=== PATIENT | male | born 1995 | race Caucasian/White ===

== ENCOUNTER 2021-07-02 11:42 | Emergency (ER) | payer MEDICAID ==
[~2021-07-02] VITALS: Ht 182.9 cm; Wt 70.8 kg
--- NOTE | 2021-07-02 12:01 | NUR ---
PT IS IN ROOM #1B. DR CYR EVALUATED THE PT.
[2021-07-02 12:16] LABS: HEMATOCRIT 44.4 % (36.7-47.1); MEAN CORPUSCULAR HEMOGLOBIN 32.5 uug (23.8-33.4); MEAN CORPUSCULAR VOLUME 91.3 fL (73.0-96.2); PLATELET COUNT (AUTO) 205 K/uL (152-348)
[2021-07-02 12:27] LABS: ALANINE AMINOTRANSFERASE 17 U/L (16-63); ALKALINE PHOSPHATASE 58 U/L (50-136); ASPARTATE AMINOTRANSFERASE 17 U/L (15-37); BILIRUBIN,DIRECT 0.1 mg/dL (0.0-0.2); BILIRUBIN,TOTAL 0.5 mg/dL (0.2-1.0); CARBON DIOXIDE 28 mmol/L (21-32); CHLORIDE 102 mmol/L (98-107); CREATININE 1.1 mg/dL (0.6-1.3); GLUCOSE 93 mg/dL (74-106); POTASSIUM 3.8 mmol/L (3.5-5.1); TOTAL PROTEIN, SERUM 7.6 g/dL (6.4-8.2); UREA NITROGEN, BLOOD 13 mg/dL (7-18)
[2021-07-02 12:30] LABS: ETHANOL < 3 MG/DL (0-0)
[2021-07-02 12:38] LABS: *AMPHETAMINE, URINE NEGATIVE (NEGATIVE); *CANNABINOID, URINE POSITIVE (NEGATIVE); *COCCAINE, URINE NEGATIVE (NEGATIVE); *OPIATE, URINE NEGATIVE (NEGATIVE); *PHENCYCLIDINE SCREEN,URINE NEGATIVE (NEGATIVE)
--- NOTE | 2021-07-02 14:00 | NUR ---
PT IS RESTING IN BED COMFORTABLY NO S/S OF SEIZURES . CONTINUE TO MONITOR THE PT.
--- NOTE | 2021-07-02 18:22 | NUR ---
PT WAS RE-EVALUATED BY DR CYR. PT WAS D/C'd TO HOME. D/C INSTRUCTIONS GIVEN TO THE PT BY DR CYR. GAIT IS STABLE. NO S/S OF DISTRESS AT THE TIME OF DISCHARGE.
[2021-07-02 18:25] VITALS: BP 129/77
== END 2021-07-02 18:27 | disposition home or self-care (01) ==
LOC: ER 11:46
DX: G40.909 Epilepsy, unspecified, not intractable, without status epilepticus (principal); R51.9 Headache, unspecified; S06.9X0S Unspecified intracranial injury without loss of consciousness, sequela; X58.XXXS Exposure to other specified factors, sequela; Z88.0 Allergy status to penicillin
CPT/HCPCS: 36415; 70450; 85025; 93005; A4663; G0480

== ENCOUNTER 2021-07-03 17:31 | Emergency (ER) | payer MEDICAID ==
[~2021-07-03] VITALS: Ht 182.9 cm; Wt 70.8 kg
[2021-07-03] MEDS ORDERED: levETIRAcetam IV 1,000 MG in IV DEXTROSE 5% 100 ML IV SCH (17:45)
[2021-07-03 18:22] LABS: HEMATOCRIT 41.7 % (36.7-47.1); MEAN CORPUSCULAR HEMOGLOBIN 32.3 uug (23.8-33.4); MEAN CORPUSCULAR VOLUME 91.8 fL (73.0-96.2); PLATELET COUNT (AUTO) 206 K/uL (152-348)
[2021-07-03] MEDS ORDERED: levETIRAcetam 500 MG/5 ML VIAL IV ONE (18:26)
[2021-07-03 18:27] LABS: ETHANOL < 3 MG/DL (0-0)
[2021-07-03 18:28] LABS: CARBON DIOXIDE 26 mmol/L (21-32); CHLORIDE 105 mmol/L (98-107); CREATININE 1.1 mg/dL (0.6-1.3); GLUCOSE 98 mg/dL (74-106); POTASSIUM 3.9 mmol/L (3.5-5.1); UREA NITROGEN, BLOOD 16 mg/dL (7-18)
[2021-07-03 18:34] LABS: ALANINE AMINOTRANSFERASE 14 U/L (16-63); ALKALINE PHOSPHATASE 51 U/L (50-136); ASPARTATE AMINOTRANSFERASE 12 U/L (15-37); BILIRUBIN,DIRECT 0.2 mg/dL (0.0-0.2); BILIRUBIN,TOTAL 0.5 mg/dL (0.2-1.0); TOTAL PROTEIN, SERUM 7.5 g/dL (6.4-8.2)
--- NOTE | 2021-07-03 18:44 | NUR ---
Patient out of unit for ct scan via [facility].
--- NOTE | 2021-07-03 19:46 | NUR ---
Pt provided urine sample, sent to lab.
[2021-07-03] MEDS ORDERED: LORAZEPAM 2 MG/1 ML VIAL IV ONE (20:00)
[2021-07-03] MEDS ORDERED: LORAZEPAM 2 MG/1 ML VIAL ONE (20:05)
[2021-07-03 20:06] LABS: *AMPHETAMINE, URINE NEGATIVE (NEGATIVE); *CANNABINOID, URINE POSITIVE (NEGATIVE); *COCCAINE, URINE NEGATIVE (NEGATIVE); *OPIATE, URINE NEGATIVE (NEGATIVE); *PHENCYCLIDINE SCREEN,URINE NEGATIVE (NEGATIVE)
--- NOTE | 2021-07-03 21:09 | NUR ---
Patient discharged to home in stable condition. Written and verbal after care instructions given. Patient verbalizes understanding of instructions. Stressed follow up or return to ER for worsening s/s. Pt provided with copies of CT scan, out of ER with steady gait, no acute signs of distress, VSS, all belongings taken, to be driven home by friend via private vehicle.
[2021-07-03 21:12] VITALS: BP 124/80
== END 2021-07-03 21:13 | disposition home or self-care (01) ==
LOC: ER 17:40
DX: G40.909 Epilepsy, unspecified, not intractable, without status epilepticus (principal); S06.9X0S Unspecified intracranial injury without loss of consciousness, sequela; X58.XXXS Exposure to other specified factors, sequela; G47.00 Insomnia, unspecified; Z82.49 Family history of ischemic heart disease and other diseases of the circulatory system; Z88.0 Allergy status to penicillin; Z91.14 Patient's other noncompliance with medication regimen
CPT/HCPCS: 36415; 70450; 80048; 80076; 80307; 80320; 85025; 96365; 99284; J1953; J2060; J7060; A4663; G0480